=== PATIENT | male | born 1995 | race Two or more races ===

== ENCOUNTER 2024-12-13 19:30 | Inpatient (IN) | payer OTHER ==
[2024-12-13 20:55] VITALS: BMI 20.6
[2024-12-13] MEDS ORDERED: MAGNESIUM HYDROX 2400MG/30ML ORAL SUSPENSION 30 ML CUP PO PRN (21:20)
[2024-12-13] MEDS ORDERED: hydrOXYzine PAMOATE 25 MG CAPSULE (FP) PO PRN (21:20)
[2024-12-13] MEDS ORDERED: BENZONATATE 200 MG CAPSULE PO PRN (21:20)
[2024-12-13] MEDS ORDERED: NICOTINE POLACRILEX 2 MG LOZENGE BC PRN (21:20)
[2024-12-13] MEDS ORDERED: POLYETHYLENE GLYCOL (HEALTHYLAX) 3350 17 GM PACKET PO PRN (21:20)
[2024-12-13] MEDS ORDERED: IBUPROFEN 600 MG TABLET (FP) PO PRN (21:20)
[2024-12-13] MEDS ORDERED: LOPERAMIDE HCL 2 MG CAPSULE PO PRN (21:20)
[2024-12-13] MEDS ORDERED: DICYCLOMINE HCL 10 MG CAPSULE PO PRN (21:20)
[2024-12-13] MEDS ORDERED: BISMUTH SUBSALICYLATE 524 MG/30 ML PO PRN (21:20)
[2024-12-13] MEDS ORDERED: guaiFENesin 600 MG TABLET.ER (FP) PO PRN (21:20)
[2024-12-13] MEDS ORDERED: BENZOCAINE/MENTHOL (CHLORASEPTIC ) LOZENGE MM PRN (21:20)
[2024-12-13] MEDS ORDERED: IBUPROFEN 400 MG TABLET (FP) PO PRN (21:20)
[2024-12-14] MEDS: chlordiazePOXIDE HCL 25 MG CAPSULE PO SCH (02:29)
[2024-12-14] MEDS: levETIRAcetam 500 MG TABLET (FP) PO SCH (02:44)
[2024-12-14] MEDS ORDERED: chlordiazePOXIDE HCL 25 MG CAPSULE ONE (02:47)
[2024-12-14] MEDS ORDERED: levETIRAcetam 500 MG TABLET (FP) PO ONE (02:47)
[2024-12-14] MEDS: propRANOLol HCL 10 MG TABLET PO ONE (02:50)
[2024-12-14] MEDS: chlordiazePOXIDE HCL 25 MG CAPSULE PO PRN (02:53)
[2024-12-14] MEDS: MELATONIN 5 MG TABLETS PO SCH (02:58)
[2024-12-14] MEDS: THIAMINE 100 MG TABLET PO SCH (02:59)
[2024-12-14] MEDS: MAG HYDROX/AL HYDROX/SIMETH 30 ML UNIT-DOSE CUP PO PRN (03:23)
[2024-12-14] MEDS: ACETAMINOPHEN 325 MG TABLET (FP) PO PRN (06:39)
[2024-12-14] MEDS ORDERED: ALBUTEROL SO4 HFA INHALER IH PRN (08:35)
[2024-12-14] MEDS: GABAPENTIN 300 MG CAPSULE PO SCH (09:24)
[2024-12-14] MEDS: NICOTINE 21 MG/24 HOURS TOPICAL PATCH TD SCH (10:27)
[2024-12-14] MEDS: PRENATAL VITAMINS W/ FOLIC ACID TABLET (FP) PO SCH (10:27)
[2024-12-14] MEDS: BACITRACIN ZINC 15 GM TUBE TOPICAL OINTMENT TP SCH (10:50)
[2024-12-14 11:31] LABS: CHLORIDE 103 mmol/L (98-107); POTASSIUM 4.1 mmol/L (3.5-5.1); SODIUM 137 mmol/L (136-145)
[2024-12-14 11:34] LABS: CALCIUM 9.1 mg/dL (8.5-10.1)
[2024-12-14 11:35] LABS: ANION GAP 5 mmol/L (4-13); BLOOD UREA NITROGEN 16.3 mg/dL (7-18); CO2 29 mmol/L (21-32); GLUCOSE,RANDOM 121 mg/dL (74-106)
[2024-12-14 11:37] LABS: ALBUMIN 3.6 g/dl (3.4-5.0)
[2024-12-14 11:38] LABS: CREATININE 0.8 mg/dL (0.55-1.3); SGOT/AST 29 U/L (15-37); SGPT/ALT 35 U/L (13-61)
[2024-12-14 11:40] LABS: BILIRUBIN,TOTAL 0.9 mg/dL (0.2-1); TOT PROT 6.9 g/dl (6.4-8.2)
[2024-12-14 11:41] LABS: ALK PHOS 91 U/L (45-117); HEMATOCRIT 34.9 % (35.4-49); HEMOGLOBIN 12.3 GM/dL (11.7-16.9); MCH 32.5 pg (25.7-33.7); MCHC 35.2 g/dl (32.0-35.9); MEAN CELL VOLUME 92.3 fl (80-96); MEAN PLT VOLUME 7.4 fl (7.5-11.1); PLATELET COUNT 228 10^3/uL (134-434); RBC 3.79 M/mm3 (4.00-5.60); RDW 14.5 % (11.9-15.9); WHITE BLOOD COUNT 4.1 K/mm3 (4.0-10.0)
[2024-12-14] MEDS ORDERED: BACITRACIN 0.9 GM PACKET ONE (11:48)
[2024-12-14] MEDS: LIPASE/PROTEASE/AMYLASE 24,000 UNIT CAPSULE PO SCH (17:29)
[2024-12-14] MEDS ORDERED: LIPASE/PROTEASE/AMYLASE 24,000 UNIT CAPSULE PO SCH (17:30)
[2024-12-15] MEDS: chlordiazePOXIDE HCL 25 MG CAPSULE PO SCH (06:00)
[2024-12-15] MEDS: ONDANSETRON *ODT* 4 MG TABLET SL PRN (17:32)
[2024-12-16] MEDS ORDERED: chlordiazePOXIDE HCL 10 MG CAPSULE PO PRN
[2024-12-16] MEDS: chlordiazePOXIDE HCL 10 MG CAPSULE PO SCH (05:41)
[2024-12-17] MEDS: chlordiazePOXIDE HCL 10 MG CAPSULE PO SCH (05:38)
[2024-12-17] MEDS: NALOXONE (NYS OPIOID OVERDOSE PROGRAM) 4 MG/0.1 ML SPRAY NS SCH (10:17)
[2024-12-17] MEDS: METHOCARBAMOL 500 MG TABLET PO PRN (22:11)
[2024-12-17] MEDS: NICOTINE POLACRILEX 2 MG GUM BUC PRN (22:13)
[2024-12-18] MEDS: chlordiazePOXIDE HCL 10 MG CAPSULE PO ONE (05:59)
[2024-12-18 07:18] VITALS: RESP 16
[2024-12-18 09:33] VITALS: BP 114/73; PULSE 79; TEMP 97.7
[2024-12-18] MEDS ORDERED: levETIRAcetam 250 MG TABLET PO ONE (09:43)
== END 2024-12-18 11:26 | disposition home or self-care (01) | DRG 775 ==
LOC: YASAS 19:30 → Y6N 23:30
PROVIDERS: ADMIT Allergy & Immunology; ATTEND Allergy & Immunology
PROC: HZ2ZZZZ Detoxification Services for Substance Abuse Treatment (ICD-10-PCS; principal; 2024-12-13)
DX: F10.230 Alcohol dependence with withdrawal, uncomplicated (principal); F17.210 Nicotine dependence, cigarettes, uncomplicated; J45.20 Mild intermittent asthma, uncomplicated
CPT/HCPCS: 36415; 80053; 80307; 85027; 86780; 93005; 93010; Q0162

== ENCOUNTER 2025-01-27 11:21 | Inpatient (IN) | payer OTHER ==
[2025-01-27] MEDS ORDERED: ALBUTEROL SO4 HFA INHALER IH PRN (11:49)
[2025-01-27] MEDS ORDERED: MAGNESIUM HYDROX 2400MG/30ML ORAL SUSPENSION 30 ML CUP PO PRN (11:50)
[2025-01-27] MEDS ORDERED: NICOTINE POLACRILEX 2 MG GUM BUC PRN (11:50)
[2025-01-27] MEDS ORDERED: LOPERAMIDE HCL 2 MG CAPSULE PO PRN (11:50)
[2025-01-27] MEDS ORDERED: BENZOCAINE/MENTHOL (CHLORASEPTIC ) LOZENGE MM PRN (11:50)
[2025-01-27] MEDS ORDERED: IBUPROFEN 400 MG TABLET (FP) PO PRN (11:50)
[2025-01-27] MEDS ORDERED: IBUPROFEN 600 MG TABLET (FP) PO PRN (11:50)
[2025-01-27] MEDS ORDERED: guaiFENesin 600 MG TABLET.ER (FP) PO PRN (11:50)
[2025-01-27] MEDS ORDERED: POLYETHYLENE GLYCOL (HEALTHYLAX) 3350 17 GM PACKET PO PRN (11:50)
[2025-01-27] MEDS ORDERED: NICOTINE POLACRILEX 2 MG LOZENGE BC PRN (11:50)
[2025-01-27] MEDS ORDERED: BENZONATATE 200 MG CAPSULE PO PRN (11:50)
[2025-01-27] MEDS ORDERED: SUVOREXANT 10 MG TABLET PO PRN (11:53)
[2025-01-27] MEDS: CREON PO SCH (12:43)
[2025-01-27] MEDS: LIPASE/PROTEASE/AMYLASE 6,000 UNIT CAPSULE PO SCH (12:43)
[2025-01-27] MEDS: THIAMINE 100 MG TABLET PO SCH (22:16)
[2025-01-27] MEDS: MELATONIN 5 MG TABLETS PO SCH (22:16)
[2025-01-27] MEDS: levETIRAcetam 500 MG TABLET (FP) PO SCH (22:16)
[2025-01-27] MEDS: METHOCARBAMOL 500 MG TABLET PO PRN (22:17)
[2025-01-27] MEDS: GABAPENTIN 300 MG CAPSULE PO SCH (22:17)
[2025-01-27] MEDS: FAMOTIDINE 20 MG TABLET PO SCH (22:17)
[2025-01-27] MEDS: SUVOREXANT 10 MG TABLET PO PRN (22:41)
[2025-01-28] MEDS: PRENATAL VITAMINS W/ FOLIC ACID TABLET (FP) PO SCH (05:31)
[2025-01-28] MEDS: NICOTINE 21 MG/24 HOURS TOPICAL PATCH TD SCH (05:32)
[2025-01-28] MEDS: MAG HYDROX/AL HYDROX/SIMETH 30 ML UNIT-DOSE CUP PO PRN (13:04)
[2025-01-28] MEDS: ACETAMINOPHEN 325 MG TABLET (FP) PO PRN (22:35)
[2025-01-30] MEDS: GABAPENTIN 300 MG CAPSULE PO SCH (21:39)
[2025-01-30] MEDS: levETIRAcetam 500 MG TABLET (FP) PO SCH (21:39)
[2025-01-31] MEDS: SUVOREXANT 15 MG TABLET PO PRN (21:21)
[2025-01-31] MEDS: TRIMETHOBENZAMIDE HCL 200MG/2ML INJ IM ONE (22:59)
[2025-01-31] MEDS ORDERED: SIMETHICONE 80 MG TAB.CHEW (FP) PO PRN (23:13)
[2025-02-01] MEDS: ONDANSETRON *ODT* 4 MG TABLET SL PRN (13:11)
[2025-02-01] MEDS: RIFAXIMIN 550 MG TABLET PO SCH (21:42)
[2025-02-02] MEDS: NICOTINE 21 MG/24 HOURS TOPICAL PATCH TD ONE (11:09)
[2025-02-03] MEDS: NICOTINE 21 MG/24 HOURS TOPICAL PATCH TD SCH (11:49)
[2025-02-04] MEDS: hydrOXYzine PAMOATE 25 MG CAPSULE (FP) PO PRN (12:02)
[2025-02-05 07:07] VITALS: BP 97/66; PULSE 69; RESP 16; TEMP 98
== END 2025-02-05 09:30 | disposition home or self-care (01) | DRG 772 ==
LOC: YASAS 11:21 → Y3NR 11:23 → Y3E 01-28 09:38
PROVIDERS: ADMIT Psychiatry & Neurology Pain Medicine; ATTEND Psychiatry & Neurology Pain Medicine
PROC: HZ42ZZZ Group Counseling for Substance Abuse Treatment, Cognitive-Behavioral (ICD-10-PCS; principal; 2025-01-27)
DX: F10.20 Alcohol dependence, uncomplicated (principal); F17.210 Nicotine dependence, cigarettes, uncomplicated; F10.282 Alcohol dependence with alcohol-induced sleep disorder; F41.9 Anxiety disorder, unspecified; G40.909 Epilepsy, unspecified, not intractable, without status epilepticus; I10 Essential (primary) hypertension; J45.20 Mild intermittent asthma, uncomplicated; K21.9 Gastro-esophageal reflux disease without esophagitis; K59.89 Other specified functional intestinal disorders
CPT/HCPCS: 36415; 82962; 86803; Q0162

== ENCOUNTER 2025-03-07 19:10 | Inpatient (IN) | payer OTHER ==
[2025-03-07 19:26] VITALS: BMI 22.9
[2025-03-07] MEDS ORDERED: METHOCARBAMOL 500 MG TABLET PO PRN (20:27)
[2025-03-07] MEDS ORDERED: BENZOCAINE/MENTHOL (CHLORASEPTIC ) LOZENGE MM PRN (20:27)
[2025-03-07] MEDS ORDERED: ACETAMINOPHEN 325 MG TABLET (FP) PO PRN (20:27)
[2025-03-07] MEDS ORDERED: NALOXONE (NARCAN) HCL 4 MG/0.1 ML SPRAY NS PRN (20:27)
[2025-03-07] MEDS ORDERED: NICOTINE POLACRILEX 2 MG GUM BUC PRN (20:27)
[2025-03-07] MEDS ORDERED: BISMUTH SUBSALICYLATE 524 MG/30 ML PO PRN (20:27)
[2025-03-07] MEDS ORDERED: LOPERAMIDE HCL 2 MG CAPSULE PO PRN (20:27)
[2025-03-07] MEDS ORDERED: POLYETHYLENE GLYCOL (HEALTHYLAX) 3350 17 GM PACKET PO PRN (20:27)
[2025-03-07] MEDS ORDERED: BENZONATATE 200 MG CAPSULE PO PRN (20:27)
[2025-03-07] MEDS ORDERED: guaiFENesin 600 MG TABLET.ER (FP) PO PRN (20:27)
[2025-03-07] MEDS ORDERED: IBUPROFEN 600 MG TABLET (FP) PO PRN (20:27)
[2025-03-07] MEDS ORDERED: MAG HYDROX/AL HYDROX/SIMETH 30 ML UNIT-DOSE CUP PO PRN (20:27)
[2025-03-07] MEDS ORDERED: DICYCLOMINE HCL 10 MG CAPSULE PO PRN (20:27)
[2025-03-07] MEDS ORDERED: MAGNESIUM HYDROX 2400MG/30ML ORAL SUSPENSION 30 ML CUP PO PRN (20:27)
[2025-03-07] MEDS ORDERED: NICOTINE POLACRILEX 2 MG LOZENGE BC PRN (20:27)
[2025-03-07] MEDS ORDERED: hydrOXYzine PAMOATE 25 MG CAPSULE (FP) PO PRN (20:27)
[2025-03-07] MEDS ORDERED: IBUPROFEN 400 MG TABLET (FP) PO PRN (20:27)
[2025-03-07] MEDS ORDERED: ONDANSETRON *ODT* 4 MG TABLET SL PRN (20:27)
[2025-03-07] MEDS ORDERED: ALBUTEROL SO4 HFA INHALER IH PRN (23:01)
[2025-03-07] MEDS: levETIRAcetam 500 MG TABLET (FP) PO ONE (23:06)
[2025-03-07] MEDS: MELATONIN 5 MG TABLETS PO SCH (23:06)
[2025-03-07] MEDS: THIAMINE 100 MG TABLET PO SCH (23:06)
[2025-03-07] MEDS: levETIRAcetam 500 MG TABLET (FP) PO SCH (23:08)
[2025-03-07] MEDS: GABAPENTIN 300 MG CAPSULE PO SCH (23:40)
[2025-03-08] MEDS: LIPASE/PROTEASE/AMYLASE 6,000 UNIT CAPSULE PO SCH (06:05)
[2025-03-08 08:38] VITALS: RESP 18
[2025-03-08] MEDS: PANTOPRAZOLE 40 MG TABLET PO SCH (10:18)
[2025-03-08] MEDS: PRENATAL VITAMINS W/ FOLIC ACID TABLET (FP) PO SCH (10:18)
[2025-03-08] MEDS: LORazepam 1 MG TABLET PO PRN (10:19)
[2025-03-08] MEDS: LIPASE/PROTEASE/AMYLASE 24,000 UNIT CAPSULE PO SCH (12:12)
[2025-03-08 13:42] VITALS: BP 106/64; PULSE 64; TEMP 98.1
[2025-03-08] MEDS ORDERED: LORazepam 2 MG TABLET PO SCH (17:00)
[2025-03-08 17:32] LABS: HEMATOCRIT 34.5 % (40.1-51.0); HEMOGLOBIN 11.3 g/dL (13.7-17.5); MCHC 32.8 g/dl (32.3-36.5); MEAN CELL VOLUME 89.1 fl (79.0-92.2); MEAN PLT VOLUME 9.6 fl (9.4-12.4); PLATELET COUNT 224 x10^3/uL (163-337); RDW 14.9 % (11.9-15.3)
[2025-03-08 17:37] LABS: POTASSIUM 3.8 mmol/L (3.5-5.1)
[2025-03-08 17:48] LABS: ALBUMIN 3.9 g/dl (3.4-5.0); CALCIUM 10.1 mg/dL (8.5-10.1)
[2025-03-08 17:49] LABS: BILIRUBIN,TOTAL 0.8 mg/dL (0.2-1); TOT PROT 7.2 g/dl (6.4-8.2)
[2025-03-08 17:52] LABS: CREATININE 0.8 mg/dL (0.55-1.3)
[2025-03-08] MEDS ORDERED: SUVOREXANT 10 MG TABLET PO PRN (22:00)
[2025-03-10] MEDS ORDERED: LORazepam 1 MG TABLET PO SCH (05:00)
[2025-03-11] MEDS ORDERED: LORazepam 0.5 MG TABLET PO PRN
[2025-03-11] MEDS ORDERED: LORazepam 0.5 MG TABLET PO SCH (05:00)
[2025-03-12] MEDS ORDERED: LORazepam 0.5 MG TABLET PO ONE (05:00)
== END 2025-03-08 15:40 | disposition left against medical advice (07) | DRG 770 ==
LOC: YASAS 19:10 → Y3N 22:11
PROVIDERS: ADMIT Allergy & Immunology; ATTEND Allergy & Immunology
PROC: HZ2ZZZZ Detoxification Services for Substance Abuse Treatment (ICD-10-PCS; principal; 2025-03-07)
DX: F10.230 Alcohol dependence with withdrawal, uncomplicated (principal); F17.210 Nicotine dependence, cigarettes, uncomplicated; G40.909 Epilepsy, unspecified, not intractable, without status epilepticus; G47.00 Insomnia, unspecified; J45.20 Mild intermittent asthma, uncomplicated; K21.9 Gastro-esophageal reflux disease without esophagitis; Z87.19 Personal history of other diseases of the digestive system
CPT/HCPCS: 36415; 80053; 80305; 80307; 85027; 86780

== ENCOUNTER 2025-05-13 10:23 | Inpatient (IN) | payer OTHER ==
[2025-05-13 10:47] VITALS: BMI 24.3
[2025-05-13] MEDS ORDERED: POLYETHYLENE GLYCOL (HEALTHYLAX) 3350 17 GM PACKET PO PRN (11:08)
[2025-05-13] MEDS ORDERED: NICOTINE POLACRILEX 2 MG GUM BUC PRN (11:08)
[2025-05-13] MEDS ORDERED: IBUPROFEN 400 MG TABLET (FP) PO PRN (11:08)
[2025-05-13] MEDS ORDERED: NALOXONE (NARCAN) HCL 4 MG/0.1 ML SPRAY NS PRN (11:08)
[2025-05-13] MEDS ORDERED: MAGNESIUM HYDROX 2400MG/30ML ORAL SUSPENSION 30 ML CUP PO PRN (11:08)
[2025-05-13] MEDS ORDERED: guaiFENesin 600 MG TABLET.ER (FP) PO PRN (11:08)
[2025-05-13] MEDS ORDERED: BENZONATATE 200 MG CAPSULE PO PRN (11:08)
[2025-05-13] MEDS ORDERED: ONDANSETRON *ODT* 4 MG TABLET SL PRN (11:08)
[2025-05-13] MEDS ORDERED: ACETAMINOPHEN 325 MG TABLET (FP) PO PRN (11:08)
[2025-05-13] MEDS ORDERED: LOPERAMIDE HCL 2 MG CAPSULE PO PRN (11:08)
[2025-05-13] MEDS ORDERED: BISMUTH SUBSALICYLATE 524 MG/30 ML PO PRN (11:08)
[2025-05-13] MEDS ORDERED: NICOTINE 14 MG/24 HOURS TOPICAL PATCH TD ONE (12:04)
[2025-05-13] MEDS: NICOTINE 14 MG/24 HOURS TOPICAL PATCH TD SCH (12:09)
[2025-05-13] MEDS: levETIRAcetam 500 MG TABLET (FP) PO SCH (13:55)
[2025-05-13] MEDS: RIFAXIMIN 550 MG TABLET PO SCH (14:55)
[2025-05-13] MEDS: LIPASE/PROTEASE/AMYLASE 24,000 UNIT CAPSULE PO SCH (14:55)
[2025-05-13] MEDS: diazePAM 5 MG TABLET PO SCH (16:56)
[2025-05-13] MEDS: IBUPROFEN 600 MG TABLET (FP) PO PRN (16:57)
[2025-05-13] MEDS: MAG HYDROX/AL HYDROX/SIMETH 30 ML UNIT-DOSE CUP PO PRN (17:27)
[2025-05-13] MEDS: FAMOTIDINE 20 MG TABLET PO ONE (18:15)
[2025-05-13] MEDS: MELATONIN 5 MG TABLETS PO SCH (22:03)
[2025-05-13] MEDS: FAMOTIDINE 20 MG TABLET PO SCH (22:05)
[2025-05-13] MEDS: METHOCARBAMOL 500 MG TABLET PO PRN (22:06)
[2025-05-13] MEDS: THIAMINE 100 MG TABLET PO SCH (22:06)
[2025-05-13] MEDS: hydrOXYzine PAMOATE 25 MG CAPSULE (FP) PO PRN (22:06)
[2025-05-13] MEDS: DICYCLOMINE HCL 10 MG CAPSULE PO PRN (22:27)
[2025-05-14] MEDS: PRENATAL VITAMINS W/ FOLIC ACID TABLET (FP) PO SCH (10:13)
[2025-05-14 12:46] LABS: CHLORIDE 99 mmol/L (98-107); HEMOGLOBIN 12.7 g/dL (13.7-17.5); MCHC 33.4 g/dl (32.3-36.5); MEAN CELL VOLUME 87.4 fl (79.0-92.2); MEAN PLT VOLUME 9.8 fl (9.4-12.4); PLATELET COUNT 214 x10^3/uL (163-337); POTASSIUM 4.1 mmol/L (3.5-5.1); RDW 15.5 % (11.9-15.3); SODIUM 138 mmol/L (136-145)
[2025-05-14 12:49] LABS: ALBUMIN 4.1 g/dl (3.4-5.0); ANION GAP 5 mmol/L (4-13); BLOOD UREA NITROGEN 6.9 mg/dL (7-18); CALCIUM 10.4 mg/dL (8.5-10.1); CO2 34 mmol/L (21-32); GLUCOSE,RANDOM 121 mg/dL (74-106)
[2025-05-14 12:52] LABS: SGOT/AST 33 U/L (15-37); SGPT/ALT 30 U/L (13-61)
[2025-05-14 12:53] LABS: CREATININE 0.7 mg/dL (0.55-1.3)
[2025-05-14 12:54] LABS: BILIRUBIN,TOTAL 0.7 mg/dL (0.2-1); TOT PROT 7.8 g/dl (6.4-8.2)
[2025-05-14 12:55] LABS: ALK PHOS 105 U/L (45-117)
[2025-05-14] MEDS: diazePAM 5 MG TABLET PO PRN (13:30)
[2025-05-15] MEDS: diazePAM 5 MG TABLET PO SCH (05:26)
[2025-05-15] MEDS: BENZOCAINE/MENTHOL (CHLORASEPTIC ) LOZENGE MM PRN (05:28)
[2025-05-15] MEDS: ALBUTEROL SO4 HFA INHALER IH PRN (22:30)
[2025-05-16] MEDS: diazePAM 5 MG TABLET PO SCH (05:35)
[2025-05-16] MEDS ORDERED: P-EPHED 60MG/TRIPROLIDI 2.5MG TABLET PO PRN (11:25)
[2025-05-16] MEDS: guaiFENesin 200 MG/10 ML 10 ML UNIT-DOSE CUPS PO PRN (22:18)
[2025-05-17] MEDS: diazePAM 5 MG TABLET PO ONE (07:12)
[2025-05-17 08:47] VITALS: BP 100/65; PULSE 83; RESP 14; TEMP 97.9
== END 2025-05-17 09:29 | disposition home or self-care (01) | DRG 775 ==
LOC: YASAS 10:23 → Y3N 11:58
PROVIDERS: ADMIT Family Medicine; ATTEND Family Medicine
PROC: HZ2ZZZZ Detoxification Services for Substance Abuse Treatment (ICD-10-PCS; principal; 2025-05-13)
DX: F10.230 Alcohol dependence with withdrawal, uncomplicated (principal); F17.210 Nicotine dependence, cigarettes, uncomplicated; G40.909 Epilepsy, unspecified, not intractable, without status epilepticus; J45.20 Mild intermittent asthma, uncomplicated; K86.89 Other specified diseases of pancreas; K21.9 Gastro-esophageal reflux disease without esophagitis; J02.9 Acute pharyngitis, unspecified
CPT/HCPCS: 0241U-QW; 36415; 80053; 80305; 80307; 85027; 86780; 93005; 93010

== ENCOUNTER 2025-07-19 16:28 | Inpatient (IN) | payer OTHER ==
[2025-07-19 17:14] VITALS: BMI 24.5
[2025-07-19] MEDS ORDERED: IBUPROFEN 400 MG TABLET (FP) PO PRN (17:55)
[2025-07-19] MEDS ORDERED: BISMUTH SUBSALICYLATE 524 MG/30 ML PO PRN (17:55)
[2025-07-19] MEDS ORDERED: NALOXONE (NARCAN) HCL 4 MG/0.1 ML SPRAY NS PRN (17:55)
[2025-07-19] MEDS ORDERED: NICOTINE POLACRILEX 2 MG LOZENGE BC PRN (17:55)
[2025-07-19] MEDS ORDERED: NICOTINE POLACRILEX 2 MG GUM BUC PRN (17:55)
[2025-07-19] MEDS ORDERED: BENZOCAINE/MENTHOL (CHLORASEPTIC ) LOZENGE MM PRN (17:55)
[2025-07-19] MEDS ORDERED: hydrOXYzine PAMOATE 25 MG CAPSULE (FP) PO PRN (17:55)
[2025-07-19] MEDS ORDERED: ACETAMINOPHEN 325 MG TABLET (FP) PO PRN (17:55)
[2025-07-19] MEDS ORDERED: DICYCLOMINE HCL 10 MG CAPSULE PO PRN (17:55)
[2025-07-19] MEDS ORDERED: MAGNESIUM HYDROX 2400MG/30ML ORAL SUSPENSION 30 ML CUP PO PRN (17:55)
[2025-07-19] MEDS ORDERED: BENZONATATE 200 MG CAPSULE PO PRN (17:55)
[2025-07-19] MEDS ORDERED: MAG HYDROX/AL HYDROX/SIMETH 30 ML UNIT-DOSE CUP PO PRN (17:55)
[2025-07-19] MEDS ORDERED: IBUPROFEN 600 MG TABLET (FP) PO PRN (17:55)
[2025-07-19] MEDS ORDERED: LOPERAMIDE HCL 2 MG CAPSULE PO PRN (17:55)
[2025-07-19] MEDS ORDERED: guaiFENesin 600 MG TABLET.ER (FP) PO PRN (17:55)
[2025-07-19] MEDS ORDERED: POLYETHYLENE GLYCOL (HEALTHYLAX) 3350 17 GM PACKET PO PRN (17:55)
[2025-07-19] MEDS: ONDANSETRON *ODT* 4 MG TABLET SL PRN (21:53)
[2025-07-19] MEDS ORDERED: ONDANSETRON *ODT* 4 MG TABLET ONE (21:53)
[2025-07-19] MEDS ORDERED: ALBUTEROL SO4 HFA INHALER IH PRN (21:56)
[2025-07-19] MEDS: MELATONIN 5 MG TABLETS PO SCH (22:22)
[2025-07-19] MEDS: levETIRAcetam 500 MG TABLET (FP) PO SCH (22:22)
[2025-07-19] MEDS: THIAMINE 100 MG TABLET PO SCH (22:22)
[2025-07-19] MEDS: GABAPENTIN 300 MG CAPSULE PO SCH (22:22)
[2025-07-20] MEDS: FAMOTIDINE 20 MG TABLET PO SCH (06:00)
[2025-07-20] MEDS: LIPASE/PROTEASE/AMYLASE 24,000 UNIT CAPSULE PO SCH (07:00)
[2025-07-20] MEDS: PRENATAL VITAMINS W/ FOLIC ACID TABLET (FP) PO SCH (10:11)
[2025-07-20] MEDS: PANTOPRAZOLE 40 MG TABLET PO SCH (10:11)
[2025-07-20] MEDS: METHOCARBAMOL 500 MG TABLET PO PRN (22:34)
[2025-07-22 09:24] VITALS: TEMP 96.8
[2025-07-22 13:20] VITALS: BP 148/97; PULSE 71; RESP 67
== END 2025-07-22 13:41 | disposition home or self-care (01) | DRG 775 ==
LOC: YASAS 16:28 → Y3N 21:30
PROVIDERS: ADMIT Neuromusculoskeletal Medicine & OMM; ATTEND Allergy & Immunology
PROC: HZ2ZZZZ Detoxification Services for Substance Abuse Treatment (ICD-10-PCS; principal; 2025-07-19)
DX: F10.230 Alcohol dependence with withdrawal, uncomplicated (principal); F17.210 Nicotine dependence, cigarettes, uncomplicated; G40.909 Epilepsy, unspecified, not intractable, without status epilepticus; J45.20 Mild intermittent asthma, uncomplicated; K21.9 Gastro-esophageal reflux disease without esophagitis; K86.9 Disease of pancreas, unspecified
CPT/HCPCS: Q0162

== ENCOUNTER 2025-07-27 22:40 | Inpatient (IN) | payer OTHER ==
[2025-07-27] MEDS ORDERED: IBUPROFEN 400 MG TABLET (FP) PO PRN (23:09)
[2025-07-27] MEDS ORDERED: BISMUTH SUBSALICYLATE 524 MG/30 ML PO PRN (23:09)
[2025-07-27] MEDS ORDERED: DICYCLOMINE HCL 10 MG CAPSULE PO PRN (23:09)
[2025-07-27] MEDS ORDERED: BENZONATATE 200 MG CAPSULE PO PRN (23:09)
[2025-07-27] MEDS ORDERED: guaiFENesin 600 MG TABLET.ER (FP) PO PRN (23:09)
[2025-07-27] MEDS ORDERED: LOPERAMIDE HCL 2 MG CAPSULE PO PRN (23:09)
[2025-07-27] MEDS ORDERED: BENZOCAINE/MENTHOL (CHLORASEPTIC ) LOZENGE MM PRN (23:09)
[2025-07-27] MEDS ORDERED: ACETAMINOPHEN 325 MG TABLET (FP) PO PRN (23:09)
[2025-07-27] MEDS ORDERED: POLYETHYLENE GLYCOL (HEALTHYLAX) 3350 17 GM PACKET PO PRN (23:09)
[2025-07-27] MEDS ORDERED: NALOXONE (NARCAN) HCL 4 MG/0.1 ML SPRAY NS PRN (23:09)
[2025-07-27] MEDS ORDERED: MAG HYDROX/AL HYDROX/SIMETH 30 ML UNIT-DOSE CUP PO PRN (23:09)
[2025-07-27] MEDS ORDERED: MAGNESIUM HYDROX 2400MG/30ML ORAL SUSPENSION 30 ML CUP PO PRN (23:09)
[2025-07-27] MEDS ORDERED: NICOTINE POLACRILEX 2 MG GUM BUC PRN (23:09)
[2025-07-27] MEDS ORDERED: IBUPROFEN 600 MG TABLET (FP) PO PRN (23:09)
[2025-07-27] MEDS ORDERED: ALBUTEROL SO4 HFA INHALER IH PRN (23:12)
[2025-07-27 23:40] VITALS: BMI 24.1
[2025-07-28] MEDS: FAMOTIDINE 20 MG TABLET PO SCH
[2025-07-28] MEDS: ONDANSETRON *ODT* 4 MG TABLET SL PRN (00:55)
[2025-07-28] MEDS: LIPASE/PROTEASE/AMYLASE 6,000 UNIT CAPSULE PO SCH (08:37)
[2025-07-28] MEDS ORDERED: levETIRAcetam 500 MG TABLET (FP) PO SCH (10:00)
[2025-07-28] MEDS: levETIRAcetam 500 MG TABLET (FP) PO SCH (10:27)
[2025-07-28] MEDS: PRENATAL VITAMINS W/ FOLIC ACID TABLET (FP) PO SCH (10:27)
[2025-07-28] MEDS: NICOTINE 14 MG/24 HOURS TOPICAL PATCH TD SCH (10:28)
[2025-07-28] MEDS: hydrOXYzine PAMOATE 25 MG CAPSULE (FP) PO PRN (17:12)
[2025-07-28] MEDS: MELATONIN 5 MG TABLETS PO SCH (22:42)
[2025-07-28] MEDS: METHOCARBAMOL 500 MG TABLET PO PRN (22:42)
[2025-07-28] MEDS: MIRTAZAPINE 15 MG TABLET (FP) PO SCH (22:42)
[2025-07-28] MEDS: THIAMINE 100 MG TABLET PO SCH (22:42)
[2025-07-29 06:06] VITALS: PULSE 63; RESP 16; TEMP 97.6
[2025-07-29 10:18] VITALS: BP 127/74
== END 2025-07-29 10:44 | disposition home or self-care (01) | DRG 775 ==
LOC: YASAS 22:40 → Y3N 23:46
PROVIDERS: ADMIT Neuromusculoskeletal Medicine & OMM; ATTEND Allergy & Immunology
PROC: HZ2ZZZZ Detoxification Services for Substance Abuse Treatment (ICD-10-PCS; principal; 2025-07-27)
DX: F10.20 Alcohol dependence, uncomplicated (principal); F17.210 Nicotine dependence, cigarettes, uncomplicated; G40.909 Epilepsy, unspecified, not intractable, without status epilepticus; G47.00 Insomnia, unspecified; J45.20 Mild intermittent asthma, uncomplicated; K21.9 Gastro-esophageal reflux disease without esophagitis; K86.9 Disease of pancreas, unspecified
CPT/HCPCS: 93005; 93010; Q0162